=== PATIENT | male | born 1975 | race Caucasian/White ===

== ENCOUNTER 2019-04-28 23:47 | Emergency (ER) | payer SELFPAY ==
[~2019-04-28] VITALS: Ht 180.3 cm; Wt 97.5 kg
[~2019-04-28 23:47] MED LIST: ACTOS30 MG; ANAPROX DS550 MG PO; ASPIRIN81 M1 PO; BENADRYL25 MG PO; CIPRODEX 0.3%-7.5 ML OT; CLARITIN10 MG PO; CLEOCIN HCL150 MG PO; CLINDAMYCIN HC300 MG PO; CYMBALTA20 MG; LANTUS100 U/ML; METFOMIN HYDRO850 MG PO; METFORMIN HCL500 MG PO; NEURONTIN300 MG PO; NKHM; PEPCID20 MG PO; PREDNISONE20 MG PO; PRINIVIL20 MG; VICODIN 5/500 505 MG PO; VITAMIN B1225 MCG PO; VITAMIN C100 MG PO; ZITHROMAX Z PA250 MG PO
[2019-04-29] MEDS ORDERED: MYCOLOG CREAM 115 GM T (00:29)
== END 2019-04-29 00:45 | disposition home or self-care (01) ==
LOC: ED 23:47
DX: L30.9 Dermatitis, unspecified (principal); E11.9 Type 2 diabetes mellitus without complications; K21.9 Gastro-esophageal reflux disease without esophagitis; Z88.0 Allergy status to penicillin; Z88.2 Allergy status to sulfonamides; Z79.899 Other long term (current) drug therapy; Z79.82 Long term (current) use of aspirin